=== PATIENT | female | born 1960 | race Caucasian/White ===

== ENCOUNTER 2018-02-01 08:57 | Outpatient (CLI) | payer OTHER ==
--- NOTE | 2018-02-01 09:33 | RAD ---
RIGHT HIP TWO VIEWS: History: Hip pain. FINDINGS: Hip joint space is well preserved. No fracture or other bony findings. IMPRESSION: Unremarkable right hip. POS: MARIELLE
--- NOTE | 2018-02-01 09:44 | RAD ---
LUMBAR SPINE SERIES THREE VIEWS: History: Low back pain. FINDINGS: Vertebral bodies are normal in height. Disc spaces are well preserved. Minimal osteophytes without di sc narrowing. Some mild degenerative facet changes are seen. Pedicles are intact. IMPRESSION: Minimal arthritic changes of the spine. POS: SPENSER
== END 2018-02-01 08:58 | disposition home or self-care (01) ==
LOC: SCSRAD 08:57
PROVIDERS: ATTEND Family Medicine
DX: M54.5 Low back pain (principal); M46.96 Unspecified inflammatory spondylopathy, lumbar region
CPT/HCPCS: 72100